=== PATIENT | male | born 1970 | race Caucasian/White ===

== ENCOUNTER → 2024-12-02 08:42 | Outpatient (REF) | payer BC, SELFPAY | LOC: RAD 08:42 | PROVIDERS: ATTENDING PHYSICIAN Student in an Organized Health Care Education/Training Program | DX: R19.5 Other fecal abnormalities (principal); R20.8 Other disturbances of skin sensation; R63.4 Abnormal weight loss; Z87.19 Personal history of other diseases of the digestive system | CPT/HCPCS: 74177; Q9967 ==

== ENCOUNTER 2024-12-05 20:00 | Emergency (ER) | payer BC, SELFPAY ==
[2024-12-05 20:05] VITALS: BP 124/87
[2024-12-05 20:38] LABS: Hematocrit 40.2 % (39.0-52.0); Hemoglobin 13.7 g/dL (13.0-18.0); Mean Corp Hgb Conc. 34.1 g/dL (33.0-37.0); Mean Corpuscular Volume 91.8 fL (80.0-94.0); Nucleated Red Blood Cells % 0 % (-); Platelet Count 288 10^3/uL (130-400); Red Cell Dist. Width 12.6 % (11.5-14.5)
[2024-12-05 20:45] LABS: Urine Character Clear (Clear)
[2024-12-05 20:59] LABS: ALT (SGPT) 18 U/L (0-50); AST (SGOT) 22 U/L (17-59); Albumin 4.3 g/dl (3.5-5.0); Alkaline Phosphatase 82 U/L (38-126); Blood Urea Nitrogen 22 mg/dl (9-20); Calcium 9.2 mg/dl (8.4-10.2); Carbon Dioxide 29 mmol/L (22-30); Chloride 104 mmol/L (98-107); Glucose 124 mg/dl (70-99); Lipase 162 U/L (23-300); Potassium 4.3 mmol/L (3.5-5.1); Sodium 136 mmol/L (135-145); Total Protein 7.1 g/dl (6.3-8.2); eGFR 54.30
[2024-12-05 21:31] LABS: Urine Red Blood Cell 0-2 /HPF (0-2); Urine Squamous Cell 0-2 /LPF (Few); Urine White Cell 0-2 /HPF (0-5)
[2024-12-05] MEDS: PERCOCET 5/325 1 TABLET PO (23:26)
[2024-12-05 23:29] VITALS: BMI 23.2
[2024-12-05 23:34] VITALS: BP 129/71
--- NOTE | 2024-12-06 00:28 | ED.GENMED ---
History of Present Illness
General
Chief Complaint: Male Genito-Urinary Symptoms
Source: patient and spouse
Exam Limitations: none
Time Seen by Provider: 12/05/24 22:47
Nursing documentation reviewed up to this point in time: agreed with
History of Present Illness
History of Present Illness:
Note:
CHIEF COMPLAINT(S)
Penile and scrotal pain with associated swelling and burning sensation.
HISTORY OF PRESENT ILLNESS
The patient is a 54-year-old male who initially presented with symptoms following a tick bite five weeks ago. He was started on doxycycline and had a reaction. He reports penile enlargement and swelling accompanied by soreness, which took a couple
of weeks to heal. He was initially treated with doxycycline l and prednisone but experienced adverse effects such as headaches and inability to sleep, which necessitated the discontinuation of prednisone. Despite trying various corticosteroids, the
patient developed a burning sensation localized to the penis and surrounding areas such as the groin, rectum, and perineum. He reports persistent burning upon urination and defecation, frequent urination with nocturia, and a sensation of incomplete
bladder emptying.
The patient states he is currently on the antibiotic Bactrim, as prescribed by his primary care physician to address suspected urinary tract infection or prostatitis. He underwent a computed tomography scan, which showed a benign kidney cyst but did
not alleviate his symptoms. He expresses significant discomfort, stating, �I can�t sit, I can�t sleep. It just hurts so much.� He also reports signs such as loera on his ankle and a feeling of heat in his groin area.
His urologist has ordered an ultrasound, though it has not yet been completed.
MEDICATIONS
- Currently taking Bactrim for presumed urinary tract infection/prostatitis.
REVIEW OF SYSTEMS
- Genitourinary: Burning sensation on urination, frequent urination, nocturia, sensation of incomplete bladder emptying.
- Dermatological: Signs of penile enlargement/swelling, soreness, and loera on the ankle.
- Neurological: Headaches.
- General: Reports significant pain affecting daily activities.
PHYSICAL EXAM
- Genital examination revealed surface burning sensation localized to the penis but not deeper tissue involvement. An impression of discomfort was evident throughout the examination.
- Nursing notes reviewed and vital signs reviewed.
PLAN
1. Order and conduct a pelvic ultrasound to evaluate for potential underlying pathologies such as kidney issues or changes indicative of prostatitis.
2. Reassess antibiotic therapy and consider other treatment options based on ultrasound findings and urologist recommendations.
3. Provide symptomatic relief for the patient, including management strategies for pain control.
4. Encourage follow-up with the urologist for further evaluation and management as planned.
DIFFERENTIAL DIAGNOSIS
The Differential Diagnosis includes, in no particular order and is not limited to:
1. Urinary Tract Infection
2. Prostatitis
3. Genitourinary Syndrome of Men
4. Herpes Simplex Virus
5. Allergic Reaction to Medications or Topicals
6. Cystitis
7. Vulvitis
8. Shingles (Herpes Zoster)
9. Epididymitis
10. Dermatitis
CARE-UPDATE
12/06/24 - 00:29
Ultrasound results indicate no abnormalities or findings requiring intervention.
Disposition:
SUMMARY OF ENCOUNTER
The patient is a 54-year-old male presenting with penile and scrotal pain following treatment for a tick bite with doxycycline approximately five weeks ago. He reports similar symptoms in the past that resolved spontaneously after treatment for a
tick bite several years ago. He denies difficulty urinating or defecating. The patient has previously stopped doxycycline and is awaiting a follow-up appointment with urology.
ASSESSMENT
The patients symptoms of penile and scrotal pain and history of tick exposure could suggest a possible recurrent reaction to doxycycline or an underlying condition exacerbated by the tick bite.
PLAN
1. Encourage follow-up with urology for further evaluation and management of his condition.
2. Provide symptomatic relief and consider alternative treatments if a reaction to doxycycline is implicated.
MEDICAL DECISION MAKING
-Complexity of Data Reviewed: Chronic conditions affecting care
1. Urinary Tract Infection
2. Prostatitis
3. Genitourinary Syndrome of Men
4. Herpes Simplex Virus
5. Allergic Reaction to Medications or Topicals
6. Cystitis
7. Vulvitis
8. Shingles (Herpes Zoster)
9. Epididymitis
10. Dermatitis
-Risk: Consideration of Admission/Observation: Escalation of care including admission/observation was considered given the complexity and risk of the patients presenting complaint, exam findings, and/or underlying comorbidities. However, ultimately,
I feel the patient is safe for outpatient management with close follow-up. Reasoning: Work-up reassuring, does not reveal any acute life/organ threatening processes, patients symptoms well controlled upon reevaluation, reexamination is reassuring,
vitals are stable, patient agreeable with discharge, reliable for follow-up.
DIAGNOSIS
Possible allergic reaction to doxycycline; ICD-10: T88.7XXA. Pain in scrotum; ICD-10: N50.89.
Past History
Past History
ED Past Medical History: None
ED Past Surgical History: None
Social History
Tobacco: Non-smoker
Review of Systems
Review of Systems
Allergies reviewed?: Yes
All Other Systems: Not applicable
Phy Exam
General Physical Exam
General Presentation: well appearing
General age: appears stated age
General Skin: warm and dry
Genitourinary Exam Male
Exam Male: circumcised, no discharge, normal external genitalia, normal testicular exam, no evidence of trauma, no lesions, no testicular swelling and no testicular tenderness
Neurological Exam
Neurological Exam: alert and oriented x3
Skin Exam
Skin Exam: normal color and warm/dry
Course
Orders/Labs/Results
Orders:
Orders
12/05/24 20:24
Complete Blood Count/With Diff Urgent
Comprehensive Metabolic Panel Urgent
Lipase Urgent
Urinalysis Reflex To Culture Urgent
Date Specimen was Collected: 12/05/24
Time Specimen was Collected: 20:14
Urine Microscopic Reflex Cult Urgent
12/05/24 23:13
Oxycodone/Acetaminophen [Percocet 5/325] 1 tablet PO NOW STA
Scrotum US [US Scrotum] Urgent
Comment:
Reason For Exam: pain
Abnormal Lab Results
12/05/24
20:24
RBC 4.38 L 10^6/uL
(4.70-6.10)
MCH 31.3 H pg
(27.0-31.0)
BUN 22 H mg/dl
(9-20)
Creatinine 1.5 H mg/dL
(0.7-1.3)
Glucose 124 H mg/dl
(70-99)
Urine Albumin (Reflex) 1+ A
(Neg - Trace)
12/05/24 20:24
12/05/24 20:24
Vital Signs
Initial and Last Documented VS:
Initial Vital Signs
Temp Pulse Resp BP Pulse Ox
98.2 F 76 18 124/87 100
12/05/24 20:05 12/05/24 20:05 12/05/24 20:05 12/05/24 20:05 12/05/24 20:05
Last Documented Vital Signs
Temp Pulse Resp BP Pulse Ox
98.2 F 76 18 129/71 98
12/05/24 20:05 12/05/24 20:05 12/05/24 20:05 12/05/24 23:34 12/06/24 00:30
*Pulse Oximetry
SaO2: 98
Oxygen Mode of Delivery: Room air
Patient hypoxic: no
*Critical Care Note
Total Time (30-74mins, 75-104mins- exclusive of procedures): Not Applicable
Update Note
Update Note:
NAME: JANE NORIEGA
DATE OF EXAM: 12/05/2024
Patient No: [id number]
Physician: FLAKITO
Date of : 1970
Past Medical History (entered by Technologist):
Reason For Exam (entered by Technologist):
Other Notes (entered by Technologist):
Additional Information (per Vision Radiologist): Burning sensation in his penis scrotum and rectum
SCROTAL ULTRASOUND
IMPRESSION
Testicles and epididymides are unremarkable bilaterally. No evidence of torsion or mass. The blood flow in the testicles is symmetric and real-time imaging of the [id number] images per technologist.
Small left simple hydrocele.
Case faxed/finalized at 12:20 AM eastern time . If there are any questions please contact me at [phone].
ED Attending Note
-
Portions of this chart may have been created with voice recognition software.� Occasional wrong word or��sound alike� substitutions may have occurred due to the inherent limitations of voice recognition software.
Discharge Plan
Departure
Patient Disposition: Home (Routine Discharge)
Date of Disposition: 12/06/24
Time of Disposition: 00:28
Patient with high blood pressure during this ER visit?: Yes
Condition: Good
Discharge Problem:
Pain in the penis, Pain, rectum
Prescriptions:
New
oxycodone-acetaminophen [Percocet] 5-325 mg tablet
1 tab PO Q6HPRN PRN (Reason: pain) Qty: 10 0RF
Referrals:
Kaz Sam DO [Family Provider, Family Practice]
Activity Restrictions/Additional Instructions:
Your prescriptions were sent electronically to the pharmacy that you specified.
Thank You for choosing [facility].
It was a pleasure meeting you and taking part in your care. We hope for your continued healing and wellness.
Please read discharge instructions in their entirety. However, they are for general education and may not describe your exact diagnosis at discharge. Information on your ER visit and medical conditions were discussed with you along with appropriate
follow up information...
If indicated, please take your medications as instructed and indicated on discharge paperwork.
Please schedule a follow up appointment as directed. Call to schedule an appointment
Please return to the emergency department with ANY change in, persisting, or worsening of symptoms. If any of your symptoms do not improve, or persist, or become more severe within 6-12 hours, please return to the emergency department for further
care.
Please return to the emergency department if you develop a headache, neck pain/stiffness, fever greater than 100.4F, chest pain, shortness of breath, persistent nausea, vomiting, slurred speech, difficulty walking, numbness/tingling, weakness, signs
of infection or any other symptoms that are worrisome to you.
If you have any questions or concerns please do not hesitate to call the Hospital at
Interventions
Interventions:
*Risk Screen - Suicide Last Done: 12/05/24 20:05
*General Assessment Last Done: 12/05/24 20:05
*Neglect/Abuse Screening Last Done: 12/05/24 23:32
*ED- Fall Risk Assessment Last Done: 12/05/24 23:32
*ED COVID-19 Vaccine History Last Done: 12/05/24 23:32
ED-Male Genitourinary Assessment Last Done: 12/05/24 23:32
Discharge Date and Time
Print Language: THAI
== END 2024-12-06 01:01 | disposition home or self-care (01) ==
LOC: EMR 20:00
PROVIDERS: Emergency Medicine; EMERGENCY PHYSICIAN Student in an Organized Health Care Education/Training Program; FAMILY PHYSICIAN Student in an Organized Health Care Education/Training Program
DX: N48.89 Other specified disorders of penis (principal); K62.89 Other specified diseases of anus and rectum; Z79.2 Long term (current) use of antibiotics
CPT/HCPCS: 99284; 76870; 80053; 81003; 81015; 83690; 85025; 93976